=== PATIENT | male | born 1995 | race Caucasian/White ===

== ENCOUNTER 2018-09-25 12:02 | Emergency (ER) | payer OTHER ==
[~2018-09-25] VITALS: Ht 172.7 cm; Wt 72.6 kg
== END 2018-09-25 15:55 | disposition home or self-care (01) ==
LOC: ER 12:02
DX: K29.70 Gastritis, unspecified, without bleeding (principal)

== ENCOUNTER 2018-10-08 13:44 | Emergency (ER) | payer OTHER ==
[~2018-10-08] VITALS: Ht 180.3 cm; Wt 72.6 kg
== END 2018-10-08 20:09 | disposition home or self-care (01) ==
LOC: ER 13:44
DX: K29.70 Gastritis, unspecified, without bleeding (principal)

== ENCOUNTER 2022-04-19 22:47 | Emergency (ER) | payer OTHER ==
[~2022-04-19] VITALS: Ht 180.3 cm; Wt 81.6 kg
[2022-04-20] MEDS ORDERED: ONDANSETRON ODT8 MG PO (17:21)
[2022-04-20] MEDS ORDERED: PEPCID AC20 MG PO (17:21)
[2022-04-20] MEDS ORDERED: CIPRO500 MG PO (17:21)
[2022-04-20] MEDS ORDERED: INTESTINEX680 M1 PO (17:21)
== END 2022-04-20 05:03 | disposition home or self-care (01) ==
LOC: ER 22:47
DX: K52.9 Noninfective gastroenteritis and colitis, unspecified (principal); A05.9 Bacterial foodborne intoxication, unspecified; R11.10 Vomiting, unspecified
CPT/HCPCS: 36415; 74177; Q9965

== ENCOUNTER 2022-11-20 15:03 | Emergency (ER) | payer OTHER ==
[~2022-11-20] VITALS: Ht 177.8 cm; Wt 77.1 kg
[~2022-11-20 15:03] MED LIST: CIPRO500 MG PO; INTESTINEX680 M1 PO; ONDANSETRON ODT8 MG PO; PEPCID AC20 MG PO
== END 2022-11-20 19:15 | disposition home or self-care (01) ==
LOC: ER 15:03
DX: K25.9 Gastric ulcer, unspecified as acute or chronic, without hemorrhage or perforation (principal)

== ENCOUNTER 2022-11-27 11:01 | Emergency (ER) | payer OTHER ==
[~2022-11-27] VITALS: Ht 177.8 cm; Wt 77.1 kg
== END 2022-11-27 23:13 | disposition home or self-care (01) ==
LOC: ER 11:01
DX: K25.9 Gastric ulcer, unspecified as acute or chronic, without hemorrhage or perforation (principal)

== ENCOUNTER 2022-11-29 11:36 | Emergency (ER) | payer OTHER ==
[~2022-11-29] VITALS: Ht 172.7 cm; Wt 68.0 kg
[2022-11-29] MEDS ORDERED: TAMS0.4C PO (15:33)
[2022-11-29] MEDS ORDERED: KETO10TA2 PO (15:33)
[2022-11-29] MEDS ORDERED: ZOFRAN8 MG PO (15:34)
== END 2022-11-29 21:28 | disposition home or self-care (01) ==
LOC: ER 11:36
DX: K52.89 Other specified noninfective gastroenteritis and colitis (principal); N20.0 Calculus of kidney; Z87.09 Personal history of other diseases of the respiratory system